=== PATIENT | female | born 1945 | race Hispanic/Latino ===

== ENCOUNTER 2016-09-08 10:14 | Outpatient (CLI) | payer MEDICARE ==
[2016-09-08 10:58] LABS: #Basophils 0.1 thou/uL (0.0-0.2); #Eosinphils 0.2 thou/uL (0.0-0.7); #Lymphocytes 3.7 thou/uL (1.20-3.40); #Monocytes 0.5 thou/uL (0.11-0.59); %Basophils 1.3 % (0.0-1.0); %Eosinophils 1.9 % (0.0-10.0); %Lymphocytes 43.5 % (21.0-51.0); %Monocytes 6.1 % (0.0-10.0); %Neutrophils 47.2 % (42.0-75.0); Bacteria/HPF None Seen HPF (None Seen); Bilirubin Negative (Negative); Blood, Urine Moderate (Negative); Clarity Clear (Clear); Glucose, Urine (Dipstick) Negative (Negative); Hemoglobin 12.7 g/dL (12.0-16.0); Leukocyte Negative (Negative); Mean Corpuscular HGB CONC 34.3 g/dL (32.0-36.0); Mean Corpuscular Hemoglobin 29.9 pg (27.0-31.0); Mean Corpuscular Volume 87.1 fl (81.0-99.0); Nitrite Negative (Negative); Platelet Count 397 thou/uL (130-400); Protein, Urine (Dipstick) Negative (Neg-Trace); RBC Distribution Width 12.2 % (11.5-14.5); RBC/HPF 0-3 HPF (0-3); Red Blood Cell (RBC) Count 4.25 mill/uL (4.20-5.40); Squamous Epithelial 0-3 HPF (0-3); Urobilinogen 0.2 mg/dL (0.2-1.0); WBC/HPF 0-3 HPF (0-3); White Blood Cell (WBC) Count 8.5 thou/uL (4.8-10.8)
[2016-09-08 11:12] LABS: Hemoglobin A1c 5.6 % (4.0-6.0)
[2016-09-08 11:14] LABS: ALT (SGPT) 11 U/L (0-55); AST (SGOT) 17 U/L (5-34); Albumin 3.8 g/dL (3.4-4.8); Alkaline Phosphatase 62 U/L (40-150); Anion Gap 14 mmol/L (10-20); BUN (Urea Nitrogen) 11 mg/dL (9.8-20.1); Bilirubin, Total 0.7 mg/dL (0.2-1.2); Calc. Creatinine Clearance 0 mL/min (70-130); Calcium 9.1 mg/dL (7.8-10.44); Carbon Dioxide 28 mmol/L (23-31); Cardiac Risk 5.2 (Less than 4.5); Chloride 104 mmol/L (98-107); Cholesterol 329 mg/dL (< 200 Desired); Estimated GFR-MDRD 54; Globulin 3.1 g/dL (2.4-3.5); Glucose 103 mg/dL (80-115); HDL Cholesterol 63 mg/dL (>60 Neg Risk); LDL Cholesterol, Calculated 238 mg/dL; Potassium 3.9 mmol/L (3.5-5.1); Protein, Total 6.9 g/dL (5.8-8.1); Sodium 142 mmol/L (136-145); Triglycerides 141 mg/dL (Less than 150)
[2016-09-08 11:29] LABS: Vitamin D, 25 Hydroxy 24.1 ng/mL (> 30.0)
== END 2016-09-08 10:15 | disposition home or self-care (01) ==
LOC: MADLABBHPM 10:14
PROVIDERS: ATTEND Family Medicine
DX: Z00.00 Encounter for general adult medical examination without abnormal findings (principal)
CPT/HCPCS: 36415; 80053; 80061; 81001; 82306; 83036; 84443; 85025

== ENCOUNTER 2016-12-10 11:34 | Outpatient (CLI) | payer MEDICARE ==
[2016-12-10 12:14] LABS: Cardiac Risk 3.7 (Less than 4.5)
== END 2016-12-10 11:35 | disposition home or self-care (01) ==
LOC: MADLABBHPM 11:34
PROVIDERS: ATTEND Family Medicine
DX: E78.5 Hyperlipidemia, unspecified (principal)
CPT/HCPCS: 36415; 80061

== ENCOUNTER 2018-12-28 16:19 | Emergency (ER) | payer MEDICARE ==
[2018-12-28] MEDS ORDERED: Adacel (T-DAP) 0.5 ML SYRINGE ONE (16:46)
[2018-12-28] MEDS ORDERED: Bacitracin Zinc 1 Packet ONE (16:46)
== END 2018-12-28 17:12 | disposition home or self-care (01) ==
LOC: MADERS 16:19
DX: S61.412A Laceration without foreign body of left hand, initial encounter (principal); W26.0XXA Contact with knife, initial encounter
CPT/HCPCS: 90471; 90715

== ENCOUNTER 2022-12-09 08:53 | Outpatient (CLI) | payer MEDICARE ==
[2022-12-09 09:35] LABS: #Basophils 0.1 thou/uL (0.0-0.2); #Eosinphils 0.3 thou/uL (0.0-0.7); #Monocytes 0.5 thou/uL (0.11-0.59); #Neutrophils 2.4 thou/uL (1.40-6.50); %Eosinophils 4.2 % (0.0-10.0); %Monocytes 7.7 % (0.0-10.0); %Neutrophils 38.1 % (42.0-75.0); Hemoglobin 13.2 g/dL (12.0-16.0); Mean Corpuscular HGB CONC 33.4 g/dL (32.0-36.0); Mean Corpuscular Hemoglobin 30.6 pg (27.0-31.0); Mean Corpuscular Volume 91.4 fl (78.0-98.0); Mean Platelet Volume 6.8 fL (7.4-10.4); Platelet Count 427 10x3/uL (130-400); RBC Distribution Width 12.1 % (11.5-14.5); Red Blood Cell (RBC) Count 4.32 mill/uL (4.20-5.40); White Blood Cell (WBC) Count 6.3 10x3/uL (4.8-10.8)
[2022-12-09 10:14] LABS: ALT (SGPT) 16 U/L (8-55); AST (SGOT) 21 U/L (5-34); Albumin 4.1 g/dL (3.4-4.8); Alkaline Phosphatase 28 U/L (40-110); Anion Gap 13 mmol/L (10-20); BUN (Urea Nitrogen) 18 mg/dL (9.8-20.1); Bilirubin, Total 0.4 mg/dL (0.2-1.2); Calc. Creatinine Clearance 0 mL/min (70-130); Calcium 9.5 mg/dL (7.8-10.44); Carbon Dioxide 26 mmol/L (23-31); Cardiac Risk 3.1 (Less than 4.5); Chloride 106 mmol/L (98-107); Cholesterol 200 mg/dl (< 200 Desired); Estimated GFR 72; Globulin 3.2 g/dL (2.4-3.5); Glucose 104 mg/dL (83-110); HDL Cholesterol 65 mg/dL (>60 Neg Risk); LDL Cholesterol, Calculated 123 mg/dL; Potassium 3.8 mmol/L (3.5-5.1); Protein, Total 7.3 g/dL (5.8-8.1); Sodium 141 mmol/L (136-145); Triglycerides 60 mg/dL (Less than 150)
[2022-12-09 10:17] LABS: Bilirubin Negative (Negative); Blood, Urine Small (Negative); Clarity Slightly Cloudy (Clear); Glucose, Urine (Dipstick) Negative (Negative); Ketone, Urine Negative (Negative); Leukocyte Negative (Negative); Nitrite Negative (Negative); Protein, Urine (Dipstick) Negative (Neg-Trace); Urobilinogen 0.2 mg/dL (Less than 2)
[2022-12-09 10:58] LABS: Bacteria/HPF Rare-Few HPF (None Seen); Squamous Epithelial 0-3 HPF (0-3); WBC/HPF None Seen HPF (0-3)
== END 2022-12-09 08:54 | disposition home or self-care (01) ==
LOC: MADHS 08:53 → MADLAB 08:54
PROVIDERS: ATTEND Family Medicine
DX: Z79.899 Other long term (current) drug therapy (principal)
CPT/HCPCS: 36415; 80053; 80061; 81001; 84443; 85025

== ENCOUNTER 2025-05-14 09:11 | Outpatient (CLI) | payer MEDICARE ==
[2025-05-14 09:44] LABS: #Basophils 0.1 thou/uL (0.0-0.2); #Eosinophils 0.3 thou/uL (0.0-0.7); #Lymphocytes 2.4 thou/uL (1.20-3.40); #Monocytes 0.6 thou/uL (0.11-0.59); #Neutrophils 3.2 thou/uL (1.40-6.50); %Basophils 2.2 % (0.0-1.0); %Eosinophils 4.6 % (0.0-10.0); %Lymphocytes 36.1 % (21.0-51.0); %Monocytes 8.8 % (0.0-10.0); %Neutrophils 48.2 % (42.0-75.0); Hematocrit 38.0 % (36.0-47.0); Hemoglobin 12.4 g/dL (12.0-16.0); Mean Corpuscular Hemoglobin 29.7 pg (27.0-31.0); Mean Corpuscular Volume 90.9 fl (78.0-98.0); Platelet Count 463 10x3/uL (130-400); Red Blood Cell (RBC) Count 4.18 mill/uL (4.20-5.40); White Blood Cell (WBC) Count 6.7 10x3/uL (4.8-10.8)
[2025-05-14 09:50] LABS: Glucose, Urine (Dipstick) Negative (Negative); Leukocyte Negative (Negative); Protein, Urine (Dipstick) Negative (Neg-Trace); Specific Gravity, Urine 1.020 (1.005-1.030)
[2025-05-14 10:02] LABS: WBC/HPF 0-3 HPF (0-3)
[2025-05-14 10:10] LABS: ALT (SGPT) 12 U/L (Less than 34); AST (SGOT) 23 U/L (11-34); Albumin 3.9 g/dL (3.1-4.5); Alkaline Phosphatase 30 U/L (40-110); Anion Gap 15 mmol/L (10-20); BUN (Urea Nitrogen) 16 mg/dL (9.8-20.1); Bilirubin, Total 0.4 mg/dL (0.3-1.2); Calc. Creatinine Clearance 0 mL/min (70-130); Calcium 9.1 mg/dL (7.8-10.44); Carbon Dioxide 25 mmol/L (23-31); Cardiac Risk 3.7 (Less than 4.5); Chloride 107 mmol/L (98-107); Cholesterol 195 mg/dl (< 200 Desired); Globulin 3.2 g/dL (2.4-3.5); Glucose 101 mg/dL (83-110); HDL Cholesterol 53 mg/dL (>60 Neg Risk); LDL Cholesterol, Calculated 123 mg/dL; Potassium 3.8 mmol/L (3.5-5.1); Sodium 143 mmol/L (136-145); Triglycerides 96 mg/dL (Less than 150)
[2025-05-15 17:59] LABS: Urine Total Volume 850.0 mL (250-2400)
[2025-05-15 18:16] LABS: Calcium - 24 HR Urine 118.0 mg/24 hr (100-300)
== END 2025-05-14 09:12 | disposition home or self-care (01) ==
LOC: MADLAB 09:11
PROVIDERS: ATTEND Family Medicine
DX: E55.9 Vitamin D deficiency, unspecified (principal); N21.0 Calculus in bladder; Z79.899 Other long term (current) drug therapy
CPT/HCPCS: 36415; 80053; 80061; 81001; 82306; 82340; 84443; 85025